=== PATIENT | female | born 1990 | race Caucasian/White ===

== ENCOUNTER 2016-09-12 09:30 | Emergency (ER) | payer BC ==
[~2016-09-12] VITALS: Ht 177.8 cm; Wt 150.0 kg
[~2016-09-12 09:30] MED LIST: ACCOLATE 220 MG/1 TA PO; ADRENACLICK IM; ALBUTEROL0.83 MG/ML IH; ALLEGRA60 MG PO; ASPIRIN E.C. 8181 MG PO; BANOPHEN25 M1 PO; CELEXA 20MG20 MG/TAB PO; CLEOCIN HC150 MG/CAP PO; COMBIVENT INH14.7 GM IH; DILAUDID 4MG TAB4 MG PO; FOLIC ACID 11 MG/TA1 PO; LIORESAL 1010 MG/TAB PO; METFORMIN500 MG PO; NEURONTIN100 MG/CAP PO; NORCO 325 MG-51 TAB PO; PERCOCET 325 MG1 TA2 PO; PREDNISONE20 MG PO; PRILOSEC 20MG20 MG PO; PROMETHAZINE V473 M2 PO; SENNA8.6 MG PO; SEPTRA 400 MG-1 TAB PO; SPIRULINA PO; SPRINTEC 35 MCG1 TAB PO; TESSALON P100 MG/CAP PO; TROKEN200; ULTRAM 50MG TAB50 MG PO; VENTOLIN0.09 MG IH; VITAMIN D3400 IU PO; ZANTAC 150MG T150 MG PO; ZANTAC PO; ZIPSOR25 MG PO; ZITHROMAX 250M250 MG PO; ZOFRAN ODT4 MG PO; ZOFRAN8 MG PO; ZYFLO600 MG PO; ZYRTEC 10MG10 MG PO; ZYRTEC ALLERGY10 MG PO; [UNRECOGNIZED DRUG - OTHER]; [UNRECOGNIZED DRUG - OTHER] PO; [UNRECOGNIZED DRUG - OTHER] PO; albuterol
[2016-09-12 09:41] VITALS: TEMP 98.2
[2016-09-12 10:40] LABS: BASO # 0.1 (0.0-0.2); BASO % 0.8 % (0.0-2.0); EOS # 0.3 (0.0-0.7); GRAN # 9.3 (1.4-6.5); GRAN % 63.9 % (42.2-75.2); HEMATOCRIT 38.4 % (37.0-47.0); HEMOGLOBIN 12.8 g/dl (12.5-16.0); LYMPH # 4.1 (1.2-3.4); LYMPH % 28.1 % (20.0-51.0); MEAN CELL VOLUME 83 fl (80.0-100.0); MEAN CORPUSCULAR HEMOGLOBIN 28 pg (27.0-31.0); MEAN CORPUSCULAR HGB CONC 33 g/dl (33.0-37.0); MEAN PLATELET VOLUME 9.9 fl (7.4-10.4); MONO # 0.7 (0.1-0.6); MONO % 4.9 % (1.7-9.3); PLATELET COUNT 297 K/mm3 (130-400); RED BLOOD COUNT 4.65 M/mm3 (4.10-5.30); WHITE BLOOD COUNT 14.6 K/mm3 (4.8-10.8)
[2016-09-12 10:51] LABS: PH 5 (5-8); URINE APPEARANCE Hazy; URINE BACTERIA Rare /hpf; URINE BILIRUBIN Negative (NEGATIVE); URINE BLOOD 1+ (NEGATIVE); URINE COLOR Yellow; URINE GLUCOSE Negative (NEGATIVE); URINE KETONE Negative (NEGATIVE); URINE UROBILINOGEN Negative (NEGATIVE)
[2016-09-12 10:59] LABS: ADJUSTED CALCIUM 9.3 mg/dL (8.4-10.2); ALBUMIN 3.6 gm/dL (3.5-5.0); BILIRUBIN,TOTAL 0.6 mg/dL (0.0-1.0); CREATININE, serum 0.67 mg/dL (0.52-1.25); POTASSIUM 3.6 mmol/L (3.4-5.0); TOTAL PROTEIN 6.9 gm/dL (6.4-8.2)
[2016-09-12 12:25] VITALS: BP 109/60
[2016-09-12 13:28] VITALS: PULSE 82
[2016-12-07] MEDS ORDERED: BUSPAR DIVIDOSE15 MG PO (10:14)
[2016-12-07] MEDS ORDERED: ATARAX 25MG25 MG/TAB PO (10:16)
[2017-01-05] MEDS ORDERED: LYRICA 75MG CAP75 MG PO (15:09)
[2017-03-02] MEDS ORDERED: PREDNISONE1 MG PO (16:09)
[2017-03-02] MEDS ORDERED: SAXENDA6 MG/ML SQ (17:11)
== END 2016-09-12 13:30 | disposition home or self-care (01) ==
LOC: COL.ER 09:30
PROVIDERS: Physician Assistant
DX: K52.9 Noninfective gastroenteritis and colitis, unspecified (principal); N83.201 Unspecified ovarian cyst, right side; E66.01 Morbid (severe) obesity due to excess calories; Z68.42 Body mass index [BMI] 45.0-49.9, adult
CPT/HCPCS: J1170; J2405; J2550; J7030

== ENCOUNTER 2016-09-16 00:32 | Emergency (ER) | payer BC ==
[~2016-09-16] VITALS: Ht 177.8 cm; Wt 150.0 kg
[2016-09-16 00:34] VITALS: TEMP 97.9
[2016-09-16 01:18] LABS: BASO # 0.1 (0.0-0.2); BASO % 0.5 % (0.0-2.0); EOS # 0.2 (0.0-0.7); EOS % 2.3 % (0-4.0); GRAN # 5.6 (1.4-6.5); GRAN % 57.3 % (42.2-75.2); HEMATOCRIT 40.2 % (37.0-47.0); HEMOGLOBIN 13.5 g/dl (12.5-16.0); LYMPH # 3.4 (1.2-3.4); LYMPH % 34.1 % (20.0-51.0); MEAN CELL VOLUME 83 fl (80.0-100.0); MEAN CORPUSCULAR HEMOGLOBIN 28 pg (27.0-31.0); MEAN CORPUSCULAR HGB CONC 34 g/dl (33.0-37.0); MEAN PLATELET VOLUME 10.4 fl (7.4-10.4); MONO # 0.5 (0.1-0.6); MONO % 5.3 % (1.7-9.3); PLATELET COUNT 307 K/mm3 (130-400); RED BLOOD COUNT 4.82 M/mm3 (4.10-5.30); REDCELL DISTRIBUTION WIDTH-CV 13.9 % (11.5-14.5); WHITE BLOOD COUNT 9.8 K/mm3 (4.8-10.8)
[2016-09-16 01:21] LABS: PH 8 (5-8); SQUAMOUS EPITHELIAL 0-2 /hpf; URINE APPEARANCE Hazy; URINE BACTERIA None Seen /hpf; URINE BILIRUBIN Negative (NEGATIVE); URINE BLOOD Negative (NEGATIVE); URINE COLOR Yellow; URINE GLUCOSE Negative (NEGATIVE); URINE KETONE Negative (NEGATIVE); URINE UROBILINOGEN Negative (NEGATIVE); URINE WBC 0-2 /hpf
[2016-09-16 01:29] LABS: ADJUSTED CALCIUM 9.4 mg/dL (8.4-10.2); ALBUMIN 4.1 gm/dL (3.5-5.0); BILIRUBIN,TOTAL 0.8 mg/dL (0.0-1.0); CALCIUM 9.5 mg/dL (8.4-10.2); CREATININE, serum 0.64 mg/dL (0.52-1.25); POTASSIUM 4.5 mmol/L (3.4-5.0); TOTAL PROTEIN 7.9 gm/dL (6.4-8.2)
[2016-09-16 02:47] VITALS: BP 136/92; PULSE 90
[2016-12-07] MEDS ORDERED: BUSPAR DIVIDOSE15 MG PO (10:14)
[2016-12-07] MEDS ORDERED: ATARAX 25MG25 MG/TAB PO (10:16)
[2017-01-05] MEDS ORDERED: LYRICA 75MG CAP75 MG PO (15:09)
[2017-03-02] MEDS ORDERED: PREDNISONE1 MG PO (16:09)
[2017-03-02] MEDS ORDERED: SAXENDA6 MG/ML SQ (17:11)
== END 2016-09-16 02:49 | disposition home or self-care (01) ==
LOC: COL.ER 00:32
PROVIDERS: Physician Assistant
DX: R10.31 Right lower quadrant pain (principal); N83.201 Unspecified ovarian cyst, right side; R10.2 Pelvic and perineal pain; E66.01 Morbid (severe) obesity due to excess calories; Z68.42 Body mass index [BMI] 45.0-49.9, adult
CPT/HCPCS: J1170; J2765; J7030

== ENCOUNTER 2016-11-07 17:59 | Emergency (ER) | payer BC ==
[~2016-11-07] VITALS: Ht 177.8 cm; Wt 154.5 kg
[2016-11-07 18:01] VITALS: TEMP 97
[2016-11-07] MEDS ORDERED: XANAX 0.5MG0.5 MG PO (18:05)
[2016-11-07 21:32] VITALS: BP 128/66; PULSE 88
[2016-12-07] MEDS ORDERED: BUSPAR DIVIDOSE15 MG PO (10:14)
[2016-12-07] MEDS ORDERED: ATARAX 25MG25 MG/TAB PO (10:16)
[2017-01-05] MEDS ORDERED: LYRICA 75MG CAP75 MG PO (15:09)
[2017-03-02] MEDS ORDERED: PREDNISONE1 MG PO (16:09)
[2017-03-02] MEDS ORDERED: SAXENDA6 MG/ML SQ (17:11)
== END 2016-11-07 21:33 | disposition home or self-care (01) ==
LOC: COL.ER 17:59
DX: M54.5 Low back pain (principal)
CPT/HCPCS: J1170; J1885

== ENCOUNTER → 2016-12-07 | Outpatient (CLI) | payer BC ==
[~2016-12-07] VITALS: Ht 171.4 cm; Wt 155.1 kg
[~2016-12-07] MED LIST changes: +ATARAX 25MG25 MG/TAB PO; +BUSPAR DIVIDOSE15 MG PO; +LYRICA 75MG CAP75 MG PO; +PREDNISONE1 MG PO; +SAXENDA6 MG/ML SQ; +VITAMIN B COMPL1 T16 PO; +XANAX 0.5MG0.5 MG PO; +ZEMBRACE S3 MG/0.5 M SQ
[2016-12-07 10:16] VITALS: BP 141/66; PULSE 102
== END ==
LOC: LIGHT 09:52
DX: J45.998 Other asthma (principal); M54.5 Low back pain; E88.81 Metabolic syndrome and other insulin resistance; E66.01 Morbid (severe) obesity due to excess calories; Z68.43 Body mass index [BMI] 50.0-59.9, adult

== ENCOUNTER 2016-12-12 01:12 | Emergency (ER) | payer BC ==
[~2016-12-12] VITALS: Ht 172.7 cm; Wt 154.5 kg
[~2016-12-12 01:12] MED LIST changes: -LYRICA 75MG CAP75 MG PO; -PREDNISONE1 MG PO; -SAXENDA6 MG/ML SQ; -VITAMIN B COMPL1 T16 PO; -ZEMBRACE S3 MG/0.5 M SQ
[2016-12-12 01:14] VITALS: TEMP 98.1
[2016-12-12] MEDS ORDERED: VITAMIN B COMPL1 T16 PO (01:20)
[2016-12-12] MEDS ORDERED: ZEMBRACE S3 MG/0.5 M SQ (01:20)
[2016-12-12 04:27] VITALS: BP 140/78; PULSE 88
[2017-01-05] MEDS ORDERED: LYRICA 75MG CAP75 MG PO (15:09)
[2017-03-02] MEDS ORDERED: PREDNISONE1 MG PO (16:09)
[2017-03-02] MEDS ORDERED: SAXENDA6 MG/ML SQ (17:11)
== END 2016-12-12 04:29 | disposition home or self-care (01) ==
LOC: COL.ER 01:12
DX: G43.919 Migraine, unspecified, intractable, without status migrainosus (principal)
CPT/HCPCS: J1170; J1200; J1885; J2550; J7030

== ENCOUNTER → 2016-12-20 | Outpatient (CLI) | payer BC ==
[~2016-12-20] MED LIST changes: +LYRICA 75MG CAP75 MG PO; +PREDNISONE1 MG PO; +SAXENDA6 MG/ML SQ; +VITAMIN B COMPL1 T16 PO; +ZEMBRACE S3 MG/0.5 M SQ
== END ==
LOC: BHSO 10:39
DX: F41.1 Generalized anxiety disorder (principal)
CPT/HCPCS: 90791-AI

== ENCOUNTER → 2016-12-20 | Outpatient (CLI) | payer BC | LOC: LIGHT 11:56 | DX: J45.998 Other asthma (principal); E16.1 Other hypoglycemia; E66.8 Other obesity; Z68.43 Body mass index [BMI] 50.0-59.9, adult ==

== ENCOUNTER → 2017-01-05 | Outpatient (CLI) | payer BC ==
[~2017-01-05] VITALS: Ht 172.8 cm; Wt 153.8 kg
[2017-01-05 15:09] VITALS: BP 132/63; PULSE 98
== END ==
LOC: LIGHT 10:19
DX: J45.909 Unspecified asthma, uncomplicated (principal); M54.5 Low back pain; E88.81 Metabolic syndrome and other insulin resistance; E66.01 Morbid (severe) obesity due to excess calories; Z68.43 Body mass index [BMI] 50.0-59.9, adult

== ENCOUNTER → 2017-01-12 | Outpatient (CLI) | payer BC | LOC: LIGHT 13:58 | DX: Z02.89 Encounter for other administrative examinations (principal) ==

== ENCOUNTER → 2017-01-20 | Outpatient (CLI) | payer BC | LOC: COL.LAB 09:38 | DX: Z11.1 Encounter for screening for respiratory tuberculosis (principal) ==

== ENCOUNTER → 2017-02-23 | Outpatient (CLI) | payer BC | LOC: BHSO 15:39 | DX: F41.1 Generalized anxiety disorder (principal) ==

== ENCOUNTER → 2017-03-02 | Outpatient (CLI) | payer BC ==
[~2017-03-02] VITALS: Ht 172.7 cm; Wt 155.4 kg
[2017-03-02 16:09] VITALS: BP 142/80; PULSE 72
== END ==
LOC: LIGHT 02-02 14:03
DX: J45.909 Unspecified asthma, uncomplicated (principal); M54.5 Low back pain; E88.81 Metabolic syndrome and other insulin resistance; E66.01 Morbid (severe) obesity due to excess calories; Z68.43 Body mass index [BMI] 50.0-59.9, adult; Z71.3 Dietary counseling and surveillance

== ENCOUNTER 2017-03-13 19:44 | Emergency (ER) | payer BC ==
[~2017-03-13] VITALS: Ht 177.8 cm; Wt 154.5 kg
[2017-03-13 19:48] VITALS: BP 134/87; TEMP 98.6
[2017-03-13 20:53] LABS: BASO # 0.1 (0.0-0.2); BASO % 0.8 % (0.0-2.0); EOS # 0.3 (0.0-0.7); EOS % 2.3 % (0-4.0); GRAN # 7.3 (1.4-6.5); GRAN % 58.5 % (42.2-75.2); HEMATOCRIT 43.5 % (37.0-47.0); HEMOGLOBIN 14.4 g/dl (12.5-16.0); LYMPH % 32.3 % (20.0-51.0); MEAN CELL VOLUME 84 fl (80.0-100.0); MEAN CORPUSCULAR HEMOGLOBIN 28 pg (27.0-31.0); MEAN CORPUSCULAR HGB CONC 33 g/dl (33.0-37.0); MEAN PLATELET VOLUME 9.6 fl (7.4-10.4); MONO # 0.7 (0.1-0.6); MONO % 5.7 % (1.7-9.3); PLATELET COUNT 296 K/mm3 (130-400); RED BLOOD COUNT 5.16 M/mm3 (4.10-5.30); REDCELL DISTRIBUTION WIDTH-CV 14.3 % (11.5-14.5); WHITE BLOOD COUNT 12.4 K/mm3 (4.8-10.8)
[2017-03-13 21:05] LABS: ADJUSTED CALCIUM 9.7 mg/dL (8.4-10.2); ALANINE AMINOTRANSFERASE 30 U/L (9-52); ALBUMIN 3.8 gm/dL (3.5-5.0); ALKALINE PHOSPHATASE 94 U/L (50-136); ANION GAP 10 mmol/L (7-16); BILIRUBIN,TOTAL 0.5 mg/dL (0.0-1.0); BLOOD UREA NITROGEN 11 mg/dL (7-17); C-REACTIVE PROTEIN 3.1 mg/dL (0.0-0.9); CALCIUM 9.5 mg/dL (8.4-10.2); CARBON DIOXIDE 23 mmol/L (22-30); CHLORIDE 105 mmol/L (98-107); GLUCOSE 103 mg/dL (74-106); POTASSIUM 3.9 mmol/L (3.4-5.0); SODIUM 138 mmol/L (137-145); TOTAL PROTEIN 7.2 gm/dL (6.4-8.2)
[2017-03-13 21:18] LABS: TROPONIN-I < 0.012 ng/mL (0.000-0.034)
[2017-03-13 22:15] VITALS: PULSE 106
== END 2017-03-13 22:15 | disposition home or self-care (01) ==
LOC: COL.ER 19:44
PROVIDERS: Family Medicine
DX: M54.2 Cervicalgia (principal); G89.29 Other chronic pain; M54.9 Dorsalgia, unspecified
CPT/HCPCS: J1885

== ENCOUNTER 2017-03-20 05:15 | Emergency (ER) | payer BC ==
[~2017-03-20] VITALS: Ht 177.8 cm; Wt 154.5 kg
[2017-03-20 05:17] VITALS: TEMP 97.8
[2017-03-20 06:52] VITALS: BP 117/72; PULSE 99
== END 2017-03-20 06:47 | disposition home or self-care (01) ==
LOC: COL.ER 05:15
DX: S93.402A Sprain of unspecified ligament of left ankle, initial encounter (principal); W18.42XA Slipping, tripping and stumbling without falling due to stepping into hole or opening, initial encounter; Y92.096 Garden or yard of other non-institutional residence as the place of occurrence of the external cause
CPT/HCPCS: J1170

== ENCOUNTER → 2017-04-20 | Outpatient (CLI) | payer BC | LOC: BHSO 15:30 | DX: F41.1 Generalized anxiety disorder (principal) ==

== ENCOUNTER 2017-05-23 18:23 | Emergency (ER) | payer BC ==
[~2017-05-23] VITALS: Ht 177.8 cm; Wt 154.5 kg
[2017-05-23 18:30] VITALS: BP 164/63; TEMP 98.9
[2017-05-23 20:54] VITALS: PULSE 89
== END 2017-05-23 20:57 | disposition home or self-care (01) ==
LOC: COL.ER 18:23
DX: J45.901 Unspecified asthma with (acute) exacerbation (principal); K21.9 Gastro-esophageal reflux disease without esophagitis

== ENCOUNTER 2017-05-26 18:16 | Emergency (ER) | payer BC ==
[~2017-05-26] VITALS: Ht 177.8 cm; Wt 154.5 kg
[2017-05-26 18:18] VITALS: TEMP 99
[2017-05-26] MEDS ORDERED: NORCO 325 MG-51 TAB PO (19:18)
[2017-05-26 21:13] VITALS: BP 125/85; PULSE 85
== END 2017-05-26 21:15 | disposition home or self-care (01) ==
LOC: COL.ER 18:16
DX: J40 Bronchitis, not specified as acute or chronic (principal); J45.909 Unspecified asthma, uncomplicated; G89.29 Other chronic pain; E66.9 Obesity, unspecified
CPT/HCPCS: J1170; J1885; J2550; J7030

== ENCOUNTER 2017-05-30 15:00 | Outpatient (RCR) | payer BC ==
[2017-06-01] MEDS ORDERED: ASPERCREME1 EACH TP (04:12)
[2017-08-14] MEDS ORDERED: CIPRO 500MG TA500 MG PO (23:43)
[2017-08-14] MEDS ORDERED: PHENERGAN 25 TA25 MG PO (23:43)
[2017-08-14] MEDS ORDERED: PHENERGAN25 MG RC (23:43)
== END 2017-08-23 | disposition home or self-care (01) ==
LOC: WSST
DX: J38.3 Other diseases of vocal cords (principal); J45.909 Unspecified asthma, uncomplicated

== ENCOUNTER 2017-06-01 02:31 | Emergency (ER) | payer BC ==
[~2017-06-01] VITALS: Ht 177.8 cm; Wt 154.5 kg
[2017-06-01 02:35] VITALS: BP 110/89
[2017-06-01 03:54] LABS: BASO # 0.1 (0.0-0.2); BASO % 0.6 % (0.0-2.0); EOS # 0.4 (0.0-0.7); GRAN # 7.1 (1.4-6.5); GRAN % 55.4 % (42.2-75.2); HEMATOCRIT 43.1 % (37.0-47.0); HEMOGLOBIN 14.2 g/dl (12.5-16.0); LYMPH # 4.7 (1.2-3.4); LYMPH % 36.2 % (20.0-51.0); MEAN CELL VOLUME 83 fl (80.0-100.0); MEAN CORPUSCULAR HEMOGLOBIN 28 pg (27.0-31.0); MEAN CORPUSCULAR HGB CONC 33 g/dl (33.0-37.0); MEAN PLATELET VOLUME 9.8 fl (7.4-10.4); MONO # 0.6 (0.1-0.6); MONO % 4.3 % (1.7-9.3); PLATELET COUNT 311 K/mm3 (130-400); RED BLOOD COUNT 5.17 M/mm3 (4.10-5.30); REDCELL DISTRIBUTION WIDTH-CV 14.1 % (11.5-14.5); WHITE BLOOD COUNT 12.8 K/mm3 (4.8-10.8)
[2017-06-01 04:02] LABS: PH 5 (5-8); SQUAMOUS EPITHELIAL 0-2 /hpf; URINE APPEARANCE Hazy; URINE BACTERIA None Seen /hpf; URINE BILIRUBIN Negative (NEGATIVE); URINE BLOOD 3+ (NEGATIVE); URINE COLOR Yellow; URINE GLUCOSE Negative (NEGATIVE); URINE KETONE Negative (NEGATIVE); URINE RBC >50 /hpf; URINE UROBILINOGEN Negative (NEGATIVE)
[2017-06-01 04:06] LABS: ADJUSTED CALCIUM 9.7 mg/dL (8.4-10.2); ALBUMIN 3.8 gm/dL (3.5-5.0); BILIRUBIN,TOTAL 0.4 mg/dL (0.0-1.0); CALCIUM 9.5 mg/dL (8.4-10.2); CREATININE, serum 0.65 mg/dL (0.52-1.25); POTASSIUM 4.1 mmol/L (3.4-5.0); TOTAL PROTEIN 7.1 gm/dL (6.4-8.2)
[2017-06-01] MEDS ORDERED: ASPERCREME1 EACH TP (04:12)
[2017-06-01 05:19] VITALS: PULSE 104; TEMP 97.6
== END 2017-06-01 05:17 | disposition home or self-care (01) ==
LOC: COL.ER 02:31
PROVIDERS: Emergency Medicine
DX: M54.5 Low back pain (principal); M54.6 Pain in thoracic spine; G89.4 Chronic pain syndrome; Z97.8 Presence of other specified devices

== ENCOUNTER → 2017-07-19 | Outpatient (CLI) | payer BC ==
[~2017-07-19] MED LIST changes: +ASPERCREME1 EACH TP
== END ==
LOC: BHSO 15:36
DX: F41.1 Generalized anxiety disorder (principal)

== ENCOUNTER 2017-08-14 15:58 | Emergency (ER) | payer BC ==
[~2017-08-14] VITALS: Ht 177.8 cm; Wt 154.5 kg
[2017-08-14 16:08] VITALS: TEMP 98.6
[2017-08-14 19:13] LABS: COLLECTION METHOD CLEAN CATCH
[2017-08-14 19:19] LABS: MUCOUS Present /lpf; PH 5 (5-8); URINE APPEARANCE Cloudy; URINE BACTERIA Rare /hpf; URINE BILIRUBIN Negative (NEGATIVE); URINE BLOOD 1+ (NEGATIVE); URINE COLOR Yellow; URINE GLUCOSE Negative (NEGATIVE); URINE KETONE 1+ (NEGATIVE); URINE LEUKOCYTE ESTERASE Trace (NEGATIVE); URINE PROTEIN(semi-quant) 1+ (NEGATIVE); URINE UROBILINOGEN Negative (NEGATIVE)
[2017-08-14 20:28] LABS: BASO % 0.3 % (0.0-2.0); EOS # 0.1 (0.0-0.7); GRAN # 6.1 (1.4-6.5); GRAN % 67.4 % (42.2-75.2); HEMATOCRIT 46.3 % (37.0-47.0); HEMOGLOBIN 14.9 g/dl (12.5-16.0); LYMPH # 2.5 (1.2-3.4); LYMPH % 27.5 % (20.0-51.0); MEAN CELL VOLUME 84 fl (80.0-100.0); MEAN CORPUSCULAR HEMOGLOBIN 27 pg (27.0-31.0); MEAN CORPUSCULAR HGB CONC 32 g/dl (33.0-37.0); MONO # 0.3 (0.1-0.6); MONO % 3.4 % (1.7-9.3); PLATELET COUNT 247 K/mm3 (130-400); RED BLOOD COUNT 5.49 M/mm3 (4.10-5.30)
[2017-08-14 20:41] LABS: ADJUSTED CALCIUM 9.2 mg/dL (8.4-10.2); ALBUMIN 4.5 gm/dL (3.5-5.0); BILIRUBIN,TOTAL 0.3 mg/dL (0.0-1.0); C-REACTIVE PROTEIN 3.3 mg/dL (0.0-0.9); CALCIUM 9.6 mg/dL (8.4-10.2); CREATININE, serum 0.67 mg/dL (0.52-1.25); POTASSIUM 3.8 mmol/L (3.4-5.0); TOTAL PROTEIN 8.2 gm/dL (6.4-8.2)
[2017-08-14] MEDS ORDERED: CIPRO 500MG TA500 MG PO (23:43)
[2017-08-14] MEDS ORDERED: PHENERGAN25 MG RC (23:43)
[2017-08-14] MEDS ORDERED: PHENERGAN 25 TA25 MG PO (23:43)
[2017-08-14 23:55] VITALS: BP 136/72; PULSE 86
== END 2017-08-14 23:58 | disposition home or self-care (01) ==
LOC: COL.ER 15:58
PROVIDERS: Emergency Medicine
DX: N39.0 Urinary tract infection, site not specified (principal); R11.2 Nausea with vomiting, unspecified; F41.9 Anxiety disorder, unspecified; J45.909 Unspecified asthma, uncomplicated; K21.9 Gastro-esophageal reflux disease without esophagitis; G43.909 Migraine, unspecified, not intractable, without status migrainosus; E66.9 Obesity, unspecified
CPT/HCPCS: J1885; J2405; J7030

== ENCOUNTER 2017-09-08 22:24 | Emergency (ER) | payer BC ==
[~2017-09-08] VITALS: Ht 177.8 cm; Wt 154.5 kg
[~2017-09-08 22:24] MED LIST changes: +CIPRO 500MG TA500 MG PO; +PHENERGAN 25 TA25 MG PO; +PHENERGAN25 MG RC
[2017-09-08 22:33] VITALS: TEMP 97.7
[2017-09-08] MEDS ORDERED: TESSALON P100 MG/CAP PO (23:52)
[2017-09-09 00:18] VITALS: BP 107/70; PULSE 92
== END 2017-09-09 00:23 | disposition home or self-care (01) ==
LOC: COL.ER 22:24
DX: R06.02 Shortness of breath (principal); R05 Cough; J45.909 Unspecified asthma, uncomplicated; K21.9 Gastro-esophageal reflux disease without esophagitis; G43.909 Migraine, unspecified, not intractable, without status migrainosus; E66.9 Obesity, unspecified; F41.9 Anxiety disorder, unspecified; K31.84 Gastroparesis; G89.29 Other chronic pain; Z68.42 Body mass index [BMI] 45.0-49.9, adult
CPT/HCPCS: J1885

== ENCOUNTER → 2017-12-25 | Outpatient (CLI) | payer BC | LOC: COL.RAD 07:40 | DX: T17.998A Other foreign object in respiratory tract, part unspecified causing other injury, initial encounter (principal); K21.9 Gastro-esophageal reflux disease without esophagitis; K31.84 Gastroparesis; R11.0 Nausea; R05 Cough; R19.7 Diarrhea, unspecified; K59.00 Constipation, unspecified; Z88.0 Allergy status to penicillin; Z88.1 Allergy status to other antibiotic agents; Z91.041 Radiographic dye allergy status; Z91.040 Latex allergy status | CPT/HCPCS: A9541 ==

== ENCOUNTER → 2018-01-17 | Outpatient (CLI) | payer BC | LOC: BHSO 08:12 | DX: F33.41 Major depressive disorder, recurrent, in partial remission (principal) | CPT/HCPCS: G0463 ==

== ENCOUNTER → 2018-03-05 | Outpatient (CLI) | payer BC | LOC: BHSO 08:26 | DX: F41.1 Generalized anxiety disorder (principal) | CPT/HCPCS: G0463 ==

== ENCOUNTER → 2018-05-09 | Outpatient (CLI) | payer BC | LOC: BHSO 13:19 | DX: F06.32 Mood disorder due to known physiological condition with major depressive-like episode (principal) | CPT/HCPCS: G0463 ==

== ENCOUNTER → 2018-07-11 | Outpatient (CLI) | payer BC | LOC: BHSO 14:28 | DX: F06.32 Mood disorder due to known physiological condition with major depressive-like episode (principal) | CPT/HCPCS: G0463 ==

== ENCOUNTER → 2018-07-23 | Outpatient (CLI) | payer BC | LOC: BHSO 07:55 | DX: F06.32 Mood disorder due to known physiological condition with major depressive-like episode (principal) | CPT/HCPCS: G0463 ==

== ENCOUNTER → 2018-08-09 | Outpatient (CLI) | payer BC | LOC: BHSO 12:38 | DX: F41.1 Generalized anxiety disorder (principal) ==

== ENCOUNTER → 2018-08-22 | Outpatient (CLI) | payer BC | LOC: BHSO 12:41 | DX: F41.1 Generalized anxiety disorder (principal) ==

== ENCOUNTER → 2018-09-12 | Outpatient (CLI) | payer BC | LOC: BHSO 12:58 | DX: F41.1 Generalized anxiety disorder (principal) ==

== ENCOUNTER → 2018-09-14 | Outpatient (CLI) | payer BC | LOC: BHSO 13:24 | DX: F41.1 Generalized anxiety disorder (principal) | CPT/HCPCS: G0463 ==

== ENCOUNTER → 2018-10-03 | Outpatient (CLI) | payer BC | LOC: BHSO 13:57 | DX: F41.1 Generalized anxiety disorder (principal) ==

== ENCOUNTER → 2018-10-17 | Outpatient (CLI) | payer BC | LOC: EDBD 14:39 → BHSO 14:39 | DX: F41.1 Generalized anxiety disorder (principal) ==

== ENCOUNTER → 2018-11-01 | Outpatient (CLI) | payer BC | LOC: BHSO 13:51 | DX: F41.1 Generalized anxiety disorder (principal) ==

== ENCOUNTER 2018-11-05 13:48 | Emergency (ER) | payer BC ==
[~2018-11-05] VITALS: Ht 177.8 cm; Wt 130.9 kg
[2018-11-05 13:51] VITALS: BP 157/101; TEMP 97.5
[2018-11-05 14:53] LABS: COLLECTION METHOD CLEAN CATCH
[2018-11-05 15:01] LABS: BASO # 0.1 (0.0-0.2); BASO % 0.9 % (0.0-2.0); EOS # 0.2 (0.0-0.7); EOS % 1.6 % (0-4.0); GRAN # 5.2 (1.4-6.5); HEMATOCRIT 45.1 % (37.0-47.0); HEMOGLOBIN 14.9 g/dl (12.5-16.0); LYMPH # 4.1 (1.2-3.4); LYMPH % 40.4 % (20.0-51.0); MEAN CELL VOLUME 78 fl (80.0-100.0); MEAN CORPUSCULAR HEMOGLOBIN 26 pg (27.0-31.0); MEAN CORPUSCULAR HGB CONC 33 g/dl (33.0-37.0); MEAN PLATELET VOLUME 10.5 fl (7.4-10.4); MONO # 0.6 (0.1-0.6); MONO % 5.8 % (1.7-9.3); PLATELET COUNT 285 K/mm3 (130-400); RED BLOOD COUNT 5.77 M/mm3 (4.10-5.30); REDCELL DISTRIBUTION WIDTH-CV 14.3 % (11.5-14.5)
[2018-11-05 15:14] LABS: ALBUMIN 4.3 gm/dL (3.5-5.0); BILIRUBIN,TOTAL 0.4 mg/dL (0.0-1.0); C-REACTIVE PROTEIN 5.7 mg/dL (0.0-0.9); CALCIUM 9.6 mg/dL (8.4-10.2); CREATININE, serum 0.97 mg/dL (0.52-1.25); POTASSIUM 3.6 mmol/L (3.4-5.0); TOTAL PROTEIN 7.6 gm/dL (6.4-8.2)
[2018-11-05 15:33] LABS: MUCOUS Present /lpf; PH 5 (5-8); SQUAMOUS EPITHELIAL 20-50 /hpf; URINE APPEARANCE Cloudy; URINE BACTERIA Rare /hpf; URINE BILIRUBIN Positive (NEGATIVE); URINE BLOOD 3+ (NEGATIVE); URINE COLOR Amber; URINE GLUCOSE Negative (NEGATIVE); URINE KETONE 1+ (NEGATIVE); URINE LEUKOCYTE ESTERASE Trace (NEGATIVE); URINE NITRATE Negative (NEGATIVE); URINE PROTEIN(semi-quant) 2+ (NEGATIVE); URINE RBC >50 /hpf
[2018-11-05] MEDS ORDERED: CIPRO 500MG TA500 MG PO (17:21)
[2018-11-05 17:42] VITALS: PULSE 101
== END 2018-11-05 17:40 | disposition home or self-care (01) ==
LOC: COL.ER 13:48
PROVIDERS: Nurse Practitioner Primary Care
DX: N39.0 Urinary tract infection, site not specified (principal); K21.9 Gastro-esophageal reflux disease without esophagitis; M79.7 Fibromyalgia; F41.9 Anxiety disorder, unspecified; G43.909 Migraine, unspecified, not intractable, without status migrainosus; J45.909 Unspecified asthma, uncomplicated; G47.00 Insomnia, unspecified; Z90.49 Acquired absence of other specified parts of digestive tract
CPT/HCPCS: J1170; J2405; J7030; Q9967

== ENCOUNTER → 2018-11-08 | Outpatient (CLI) | payer BC | LOC: BHSO 14:42 | DX: F06.32 Mood disorder due to known physiological condition with major depressive-like episode (principal) | CPT/HCPCS: G0463 ==

== ENCOUNTER → 2018-11-28 | Outpatient (CLI) | payer BC | LOC: BHSO 13:01 | DX: F41.1 Generalized anxiety disorder (principal) ==

== ENCOUNTER → 2018-12-12 | Outpatient (CLI) | payer BC | LOC: BHSO 13:54 | DX: F41.1 Generalized anxiety disorder (principal) ==

== ENCOUNTER → 2018-12-19 | Outpatient (CLI) | payer BC | LOC: BHSO 13:59 | DX: F33.41 Major depressive disorder, recurrent, in partial remission (principal) | CPT/HCPCS: G0463 ==

== ENCOUNTER → 2018-12-26 | Outpatient (CLI) | payer BC | LOC: BHSO 14:00 | DX: F41.1 Generalized anxiety disorder (principal) ==

== ENCOUNTER → 2019-01-09 | Outpatient (CLI) | payer BC | LOC: BHSO 13:30 | DX: F33.1 Major depressive disorder, recurrent, moderate (principal) ==

== ENCOUNTER → 2019-01-23 | Outpatient (CLI) | payer BC ==
[~2019-01-23] MED LIST changes: +CYMBALTA 20MG20 MG PO; +LAMICTAL150 MG PO; +PRIL40 PO; +PROMETHAZINE H118 ML PO; +SEASONIQUE1 TAB PO; +SINEQUAN 1010 MG/CAP PO; +WELLBUTRIN XL150 MG PO
== END ==
LOC: BHSO 13:41
DX: F33.1 Major depressive disorder, recurrent, moderate (principal)

== ENCOUNTER → 2019-02-06 | Outpatient (CLI) | payer BC ==
[~2019-02-06] MED LIST changes: +PROTONIX 40MG T40 MG PO
== END ==
LOC: BHSO 10:46
DX: F33.1 Major depressive disorder, recurrent, moderate (principal)

== ENCOUNTER → 2019-02-20 | Outpatient (CLI) | payer BC | LOC: BHSO 12:55 | DX: F41.1 Generalized anxiety disorder (principal) ==

== ENCOUNTER → 2019-03-14 | Outpatient (CLI) | payer BC | LOC: BHSO 13:53 | DX: F33.1 Major depressive disorder, recurrent, moderate (principal) ==

== ENCOUNTER → 2019-03-20 | Outpatient (CLI) | payer BC | LOC: BHSO 13:54 | DX: F06.32 Mood disorder due to known physiological condition with major depressive-like episode (principal) | CPT/HCPCS: G0463 ==

== ENCOUNTER → 2019-06-18 | Outpatient (CLI) | payer BC ==
[~2019-06-18] MED LIST changes: -CYMBALTA 20MG20 MG PO; +CYMBALTA 60MG60 MG PO; +EPIPEN 2-PAK1 MG/ML IM
== END ==
LOC: BHSO 13:46
DX: F06.32 Mood disorder due to known physiological condition with major depressive-like episode (principal)
CPT/HCPCS: G0463

== ENCOUNTER 2019-07-11 11:00 | Outpatient (RCR) | payer BC ==
[2019-04-16 15:27] VITALS: BP 158/125; PULSE 88; TEMP 97.8
[2019-05-30 15:22] VITALS: BP 146/88; PULSE 107; TEMP 98.3
--- NOTE | 2019-05-30 16:19 | NUR ---
Pt margarita Xolair well. Pt declined further observation and left unit per ambulation with fiance.
[2019-06-12 08:58] VITALS: BP 144/106; PULSE 98; TEMP 97.9
[2019-06-26 14:00] VITALS: BP 119/66; PULSE 114; TEMP 98.3
[~2019-07-11] VITALS: Ht 177.8 cm; Wt 150.2 kg
[~2019-07-11 11:00] MED LIST changes: +LEVAQUIN 2250 MG/TAB PO; -WELLBUTRIN XL150 MG PO; +WELLBUTRIN XL300 M1 PO
[2019-07-11 11:16] VITALS: BP 133/85; PULSE 96; TEMP 97.9
[2019-07-11] MEDS ORDERED: IMITREX 25MG TA25 MG PO (11:16)
== END 2019-07-15 | disposition home or self-care (01) ==
LOC: EUO
DX: J45.50 Severe persistent asthma, uncomplicated (principal); Z79.899 Other long term (current) drug therapy

== ENCOUNTER 2019-08-21 14:00 | Outpatient (RCR) | payer BC ==
[2019-07-24 16:22] VITALS: BP 135/90; PULSE 100; TEMP 98.7
[2019-08-07 15:15] VITALS: BP 144/106; PULSE 105; TEMP 97.5
--- NOTE | 2019-08-07 15:41 | NUR ---
Pt margarita xolair well. Pt declined observation and left unit per ambulation.
[~2019-08-21] VITALS: Ht 177.8 cm; Wt 152.0 kg
[~2019-08-21 14:00] MED LIST changes: +IMITREX 25MG TA25 MG PO; +IMITREX50 MG PO; +NORCO 325 MG-7.1 TAB PO
[2019-08-21 14:07] VITALS: BP 129/86; PULSE 101; TEMP 97.8
--- NOTE | 2019-08-21 14:38 | NUR ---
Pt margarita injections well. Pt left unit per ambulation.
== END 2019-08-21 14:39 | disposition home or self-care (01) ==
LOC: EUO 14:00
DX: J45.50 Severe persistent asthma, uncomplicated (principal); Z79.899 Other long term (current) drug therapy

== ENCOUNTER → 2019-09-17 | Outpatient (CLI) | payer BC | LOC: BHSO 13:47 | DX: F06.32 Mood disorder due to known physiological condition with major depressive-like episode (principal) | CPT/HCPCS: G0463 ==

== ENCOUNTER → 2019-11-11 | Outpatient (CLI) | payer BC | LOC: BHSO 12:58 | DX: F33.41 Major depressive disorder, recurrent, in partial remission (principal) | CPT/HCPCS: G0463 ==

== ENCOUNTER → 2020-02-12 | Outpatient (CLI) | payer BC | LOC: BHSO 13:20 → BHSTELE 13:20 | DX: F06.32 Mood disorder due to known physiological condition with major depressive-like episode (principal) | CPT/HCPCS: G0463 ==

== ENCOUNTER → 2020-05-25 | Outpatient (CLI) | payer BC | LOC: BHSTELE 10:00 | DX: F41.1 Generalized anxiety disorder (principal) | CPT/HCPCS: G0463 ==

== ENCOUNTER 2021-03-01 19:13 | Emergency (ER) | payer OTHER ==
[~2021-03-01] VITALS: Ht 177.8 cm; Wt 163.6 kg
[2021-03-01 19:32] VITALS: TEMP 97.9
[2021-03-01] MEDS ORDERED: ZANAFLEX CAPSULE4 MG PO (21:34)
[2021-03-01] MEDS ORDERED: ULTRAM 50MG TAB50 MG PO (21:36)
[2021-03-01] MEDS ORDERED: MOTRIN 800800 MG/TAB PO (21:48)
[2021-03-01] MEDS ORDERED: PRECOSE 25MG25 MG PO (21:48)
[2021-03-01 22:56] VITALS: BP 159/85; PULSE 99
== END 2021-03-01 22:58 | disposition home or self-care (01) ==
LOC: COL.ER 19:13
DX: S92.514A Nondisplaced fracture of proximal phalanx of right lesser toe(s), initial encounter for closed fracture (principal); W22.8XXA Striking against or struck by other objects, initial encounter

== ENCOUNTER 2023-06-05 12:33 | Emergency (ER) | payer OTHER ==
[~2023-06-05] VITALS: Ht 175.3 cm; Wt 166.4 kg
[~2023-06-05 12:33] MED LIST changes: +MOTRIN 800800 MG/TAB PO; +PRECOSE 25MG25 MG PO; +ZANAFLEX CAPSULE4 MG PO
[2023-06-05 12:46] VITALS: TEMP 98.1
[2023-06-05 13:40] LABS: BASO # 0.1 K/mm3 (0.0-0.2); BASO % 1.1 % (0.0-2.0); EOS # 0.3 K/mm3 (0.0-0.7); EOS % 3.4 % (0.0-4.0); GRAN % 43.7 % (42.2-75.2); HEMATOCRIT 39.1 % (37.0-47.0); HEMOGLOBIN 12.3 g/dl (12.5-16.0); LYMPH # 4.3 K/mm3 (1.2-3.4); LYMPH % 46.7 % (20.0-51.0); MEAN CELL VOLUME 77 fl (80.0-100.0); MEAN CORPUSCULAR HEMOGLOBIN 24 pg (27-31); MEAN CORPUSCULAR HGB CONC 32 g/dl (33.0-37.0); MEAN PLATELET VOLUME 9.5 fl (7.4-10.4); MONO # 0.4 K/mm3 (0.1-0.6); PLATELET COUNT 311 K/mm3 (130-400); RED BLOOD COUNT 5.08 M/mm3 (4.10-5.30); REDCELL DISTRIBUTION WIDTH-CV 18.6 % (11.5-14.5)
[2023-06-05 13:57] LABS: ALANINE AMINOTRANSFERASE 20 U/L (0-55); ALBUMIN 3.5 gm/dL (3.5-5.0); ALKALINE PHOSPHATASE 73 U/L (40-150); ANION GAP 16 mmol/L (7-16); AST,SGOT 17 U/L (5-34); BILIRUBIN,TOTAL 0.4 mg/dL (0.2-1.2); BLOOD UREA NITROGEN 14 mg/dL (7-19); C-REACTIVE PROTEIN 1.74 mg/dL (0.00-0.50); CALCIUM 9.5 mg/dL (8.4-10.2); CARBON DIOXIDE 19 mmol/L (22-29); CHLORIDE 105 mmol/L (98-107); GLUCOSE 125 mg/dL (70-99); POTASSIUM 3.1 mmol/L (3.5-4.5); SODIUM 140 mmol/L (136-145); TOTAL PROTEIN 6.8 gm/dL (6.2-8.1)
[2023-06-05 14:08] LABS: ACETAMINOPHEN < 1.0 ug/mL (10-30); ALCOHOL(ethanol),MEDICAL < 10 mg/dL (0-10); SALICYLATE < 5.0 mg/dL (15.0-30.0)
[2023-06-05 18:17] LABS: TRICYCLIC ANTIDEPRESS URINE POSITIVE
[2023-06-05 19:35] VITALS: BP 96/64; PULSE 88
== END 2023-06-05 19:35 | disposition left against medical advice (07) ==
LOC: COL.ER 12:33
PROVIDERS: Nurse Practitioner
DX: K08.89 Other specified disorders of teeth and supporting structures (principal); R44.1 Visual hallucinations; E66.9 Obesity, unspecified; Z28.310 Unvaccinated for COVID-19; Z91.040 Latex allergy status; Z68.43 Body mass index [BMI] 50.0-59.9, adult
CPT/HCPCS: J2060; J7030

== ENCOUNTER 2024-02-16 12:34 | Day surgery (SDC) | payer OTHER ==
[~2024-02-16] VITALS: Ht 177.8 cm; Wt 130.0 kg
[~2024-02-16 12:34] MED LIST changes: +LR 1,000 ML IV SCH; +Ondansetron 4 MG/2 ML VIAL IV PRN
[2024-02-16] MEDS ORDERED: Lidocaine PF 2% (20 MG/ML) 5 ML VIAL ONE (12:36)
[2024-02-16] MEDS ORDERED: Glycopyrrolate 0.2 MG/ML 1 ML VIAL ONE (12:36)
[2024-02-16] MEDS ORDERED: LYRICA 100MG C100 M1 PO ×2 (13:32)
[2024-02-16] MEDS ORDERED: QULIPTA60 MG PO (13:35)
[2024-02-16 13:46] VITALS: BP 133/92; PULSE 86; TEMP 97.5
[2024-02-16 14:50] VITALS: BP 124/76; PULSE 77; TEMP 96.4
--- NOTE | 2024-02-16 14:50 | NUR ---
Pt returned via cart to [facility]. Pt resting with eyes closed on cart and denies needs. Side rails up with call light in reach. VSS-see flowsheet.
[2024-02-16 15:00] VITALS: BP 122/88; PULSE 80
--- NOTE | 2024-02-16 15:02 | NUR ---
1308 Into pre-op Patient to [facility] 3 via wheel chair, breathing even and unlabored. Pt is alert and oriented. Consents reviewed and signed by the patient. Patient was a difficult IV start, attempts by MALLY Anderson and myself. IV established. LR infusion via gravity at [facility]. Call light in reach. Warm blanket provided.
[2024-02-16 15:15] VITALS: BP 127/85; PULSE 75
--- NOTE | 2024-02-16 15:30 | NUR ---
VS remain stable. Pt tolerated oral intake. IV removed, pressure dressing applied. Pt reported needing help dressing-assisted pt dressing. Discharge teaching completed, pt verbalized understanding. Dr Rouse in to see pt post procedure. Pt taken via wheelchair to private vehicle for dc home with pts uncle, [address] to drive.
== END 2024-02-16 15:30 | disposition home or self-care (01) ==
LOC: SDCO 12:34
DX: K29.30 Chronic superficial gastritis without bleeding (principal); R19.7 Diarrhea, unspecified; Q79.60 Ehlers-Danlos syndrome, unspecified; K62.5 Hemorrhage of anus and rectum; K59.00 Constipation, unspecified; Z79.1 Long term (current) use of non-steroidal anti-inflammatories (NSAID)
CPT/HCPCS: J2704; J7120

== ENCOUNTER → 2024-03-18 | Outpatient (CLI) | payer OTHER ==
[~2024-03-18] MED LIST changes: -LR 1,000 ML IV SCH; +LYRICA 100MG C100 M1 PO; -Ondansetron 4 MG/2 ML VIAL IV PRN; +QULIPTA60 MG PO
== END ==
LOC: MHCPAIN 07:54
DX: G90.521 Complex regional pain syndrome I of right lower limb (principal); G90.522 Complex regional pain syndrome I of left lower limb; M79.2 Neuralgia and neuritis, unspecified
CPT/HCPCS: G0463